=== PATIENT | male | born 1955 | race American Indian/Alaskan Native ===

== ENCOUNTER 2017-11-21 20:17 | Emergency (ER) | payer BC ==
[2017-11-21 21:00] LABS: Alanine Aminotransferase 19 units/L (7-56); Albumin 4.2 g/dL (3.9-5); BUN/Creatinine Ratio 23; Blood Urea Nitrogen 21 mg/dL (9-20); Calcium 9.6 mg/dL (8.4-10.2); Hemolysis Index 4; Lipase 28 units/L (13-60)
[2017-11-21 21:01] LABS: Basophils % (Auto) 0.4 % (0.0-1.8); Eosinophils % (Auto) 0.3 % (0.0-4.3); Hematocrit 43.9 % (35.5-45.6); Hemoglobin 14.8 gm/dl (11.8-15.2); Lymphocytes % (Auto) 16.1 % (13.4-35.0); Mean Corpuscular HGB Conc 34 % (32-34); Mean Corpuscular Hemoglobin 29 pg (28-32); Mean Corpuscular Volume 87 fl (84-94); Monocytes % (Auto) 3.8 % (0.0-7.3); Platelet Count 187 K/mm3 (140-440); Red Blood Count 5.03 M/mm3 (3.65-5.03); Red Cell Distribution Width 13.8 % (13.2-15.2)
[2017-11-21 21:02] LABS: Lymphocytes # (Auto) 1.1 K/mm3 (1.2-5.4); Monocytes # (Auto) 0.3 K/mm3 (0.0-0.8)
[2017-11-21] MEDS ORDERED: ZOFRAN IV ONE (21:24)
[2017-11-21] MEDS ORDERED: TORADOL IV ONE (21:24)
[2017-11-21] MEDS ORDERED: REGLAN IV ONE (21:24)
[2017-11-21] MEDS ORDERED: BENADRYL IV ONE (21:24)
--- NOTE | 2017-11-21 21:43 | Emergency Department Report ---
ED Headache HPI - General Chief Complaint: Abdominal Pain Stated Complaint: HEADACHE,STOMACH PAIN Time Seen by Provider: 11/21/17 21:13 Source: patient Exam Limitations: no limitations - History of Present Illness Initial Comments: 62-year-old male with neck and past medical history presents to Hospital complaining of headache, nausea, and vomiting. Patient states that he had a mild frontal headache and lightheadedness after leaving [place]. Headache progressively worsened and became throbbing and moderate to severe in intensity in the frontal bitemporal part of the head. Patient took Motrin 800mg and ate chicken and tried to lay down. 30 minutes later he started having vomiting. Mild neck pain reported. No history of trauma, syncope, chest pain, or shortness of breath. Patient denies abdominal pain. No previous history of headaches or migraines reported. No fever. Allergies/Adverse Reactions: Allergies No Known Allergies Allergy (Verified 11/21/17 20:25) Home Medications: Ambulatory Orders Butalb/Acetamin/Caff 50-325-40 [Fioricet] 1 tab PO Q6HR PRN #20 tab 11/21/17 Ibuprofen [Motrin] 800 mg PO Q8HR PRN #30 tablet 11/21/17 Ondansetron [Zofran Odt] 4 mg PO Q8HR PRN #20 tab.rapdis 11/21/17 ED Review of Systems ROS: Stated complaint: HEADACHE,STOMACH PAIN Other details as noted in HPI Comment: All other systems reviewed and negative ED Past Medical Hx - Past Medical History Previous Medical History?: No - Surgical History Past Surgical History?: Yes Additional Surgical History: right knee - Social History Smoking Status: Never Smoker Substance Use Type: None - Medications Home Medications: Home Medications Medication Instructions Recorded Confirmed Last Taken Type Butalb/Acetamin/Caff 50-325-40 1 tab PO Q6HR PRN #20 tab 11/21/17 Unknown Rx [Fioricet] Ibuprofen [Motrin] 800 mg PO Q8HR PRN #30 tablet 11/21/17 Unknown Rx Ondansetron [Zofran Odt] 4 mg PO Q8HR PRN #20 tab.rapdis 11/21/17 Unknown Rx ED Physical Exam - General Limitations: No Limitations - Other Other exam information: General: No limitations, patient is alert in no acute distress Head exam: Atraumatic, normocephalic Eyes exam: Normal appearance, pupils equal reactive to light, extraocular movements intact ENT: Moist mucous membrane, normal oropharynx Neck exam: Normal inspection, full range of motion, no meningismus nontender Respiratory exam: Clear to auscultation bilateral, no wheezes, rales, crackles Cardiovascular: Normal rate and rhythm, normal heart sounds Abdomen: Soft, nondistended, and nontender, with normal bowel sounds, no rebound, or guarding Extremity: Full range of motion normal inspection no deformity Back: Normal Inspection, full range of motion, no tenderness Neurologic: Alert, oriented x3, cranial nerves intact, no motor or sensory deficit, NIHSS 0 Psychiatric: normal affect, normal mood Skin: Warm, dry, intact ED Course Vital Signs 11/21/17 11/21/17 11/21/17 20:19 21:17 21:40 Temperature 97.4 F L 97.5 F L Pulse Rate 74 78 Respiratory 18 16 Rate Blood Pressure 117/83 Blood Pressure 127/79 [Left] O2 Sat by Pulse 97 99 97 Oximetry 11/21/17 11/21/17 11/21/17 21:41 21:46 22:00 Temperature Pulse Rate 70 78 Respiratory 27 H 27 H Rate Blood Pressure 127/79 127/79 127/79 Blood Pressure [Left] O2 Sat by Pulse 99 96 100 Oximetry 11/21/17 11/21/17 11/21/17 22:04 22:16 22:33 Temperature Pulse Rate 77 Respiratory 16 13 16 Rate Blood Pressure 128/90 Blood Pressure [Left] O2 Sat by Pulse 98 Oximetry ED Medical Decision Making - Lab Data Result diagrams: 11/21/17 20:31 11/21/17 20:31 Lab Results 11/21/17 11/21/17 11/21/17 Range/Units 20:31 20:31 Unknown WBC 6.8 (4.5-11.0) K/mm3 RBC 5.03 (3.65-5.03) M/mm3 Hgb 14.8 (11.8-15.2) gm/dl Hct 43.9 (35.5-45.6) % MCV 87 (84-94) fl MCH 29 (28-32) pg MCHC 34 (32-34) % RDW 13.8 (13.2-15.2) % Plt Count 187 (140-440) K/mm3 Lymph % (Auto) 16.1 (13.4-35.0) % [place] % (Auto) 3.8 (0.0-7.3) % Eos % (Auto) 0.3 (0.0-4.3) % Baso % (Auto) 0.4 (0.0-1.8) % Lymph # 1.1 L (1.2-5.4) K/mm3 [place] # 0.3 (0.0-0.8) K/mm3 Eos # 0.0 (0.0-0.4) K/mm3 Baso # 0.0 (0.0-0.1) K/mm3 Add Manual Diff Complete Seg Neutrophils % 79.4 H (40.0-70.0) % Seg Neutrophils # 5.4 (1.8-7.7) K/mm3 Sodium 139 (137-145) mmol/L Potassium 4.3 (3.6-5.0) mmol/L Chloride 101.9 (98-107) mmol/L Carbon Dioxide 26 (22-30) mmol/L Anion Gap 15 mmol/L BUN 21 H (9-20) mg/dL Creatinine 0.9 (0.8-1.5) mg/dL Estimated GFR > 60 ml/min BUN/Creatinine Ratio 23 % Glucose 106 H (75-100) mg/dL Calcium 9.6 (8.4-10.2) mg/dL Total Bilirubin 0.80 (0.1-1.2) mg/dL AST 19 (5-40) units/L ALT 19 (7-56) units/L Alkaline Phosphatase 63 (35-129) units/L Total Protein 7.0 (6.3-8.2) g/dL Albumin 4.2 (3.9-5) g/dL Albumin/Globulin Ratio 1.5 % Lipase 28 (13-60) units/L Urine Color Yellow (Yellow) Urine Turbidity Clear (Clear) Urine pH 8.0 H (5.0-7.0) Ur Specific [place] 1.024 (1.003-1.030) Urine Protein <15 mg/dl (Negative) mg/dL Urine Glucose (UA) Neg (Negative) mg/dL Urine Ketones Tr (Negative) mg/dL Urine Blood Neg (Negative) Urine Nitrite Neg (Negative) Urine Bilirubin Neg (Negative) Urine Urobilinogen < 2.0 (<2.0) mg/dL Ur Leukocyte Esterase Neg (Negative) Urine WBC (Auto) 0.0 (0.0-6.0) /HPF Urine RBC (Auto) 1.0 (0.0-6.0) /HPF Urine Mucus Few /HPF - Radiology Data Radiology results: report reviewed ct head IMPRESSION: No acute intracranial abnormality - Medical Decision Making headache feels better after receiving Reglan, Benadryl, Toradol, and [address] unremarkable. Labs unremarkable. Will be discharged home with symptomatic treatment and PMD f/u - Differential Diagnosis migraine, tension, ICH, tension Critical Care Time: No Critical care attestation.: If time is entered above; I have spent that time in minutes in the direct care of this critically ill patient, excluding procedure time. ED Disposition Clinical Impression: Headache, Vomiting Disposition: OP ADMIT IP TO THIS HOSP Is pt being admited?: Yes Condition: Stable Instructions: Acute Headache (ED) Additional Instructions: Take the medication as prescribed. Follow up with the doctor provided with a doctor of your choice. Return if symptoms worsen. Prescriptions: Butalb/Acetamin/Caff 50-325-40 [Fioricet] 1 tab PO Q6HR PRN #20 tab PRN Reason: Headache Ibuprofen [Motrin] 800 mg PO Q8HR PRN #30 tablet PRN Reason: Pain Ondansetron [Zofran Odt] 4 mg PO Q8HR PRN #20 tab.rapdis PRN Reason: Nausea And Vomiting Referrals: MILAGROS BLANTON MD [Staff Physician] - 3-5 Days PRIMARY CARE, [Primary Care Provider] - 3-5 Days Time of Disposition: 23:07 - Assessment Assessment Interval: Baseline - Level of Consciousness 1a. Level of Consciousness: alert - LOC Questions 1b. LOC Questions: answers correctly - LOC Command 1c. LOC Commands: performs tasks correctly - Best Gaze 2. Best Gaze: normal - Visual 3. Visual: no visual loss - Facial Palsy 4. Facial Palsy: normal symmetrical movement - Motor Arm 5b. Motor Arm Right: no drift 5a. Motor Arm Left: no drift - Motor Leg 6a. Motor Leg Left: no drift 6b. Motor Leg Right: no drift - Limb Ataxia 7. Limb Ataxia: absent - Sensory 8. Sensory: normal - Best Language 9. Best Language: no aphasia - Dysarthria 10. Dysarthria: normal - Extinction and Inattention 11. Extinction/Inattention: no abnormality - Scoring Total Score: 0 Stroke Severity: No Stroke Symptoms
[2017-11-21] MEDS ORDERED: NACL 0.9% 1000 ML 1,000 ML IV ONE (22:04)
[2017-11-21 22:07] LABS: Bilirubin,Urine NEG (Negative); Blood,Urine NEG (Negative); Color,Urine Yellow (Yellow); Mucus,Urine FEW /HPF; Protein,Urine <15 mg/dL mg/dL (Negative); Urobilinogen,Urine < 2.0 mg/dL (<2.0)
--- NOTE | 2017-11-21 22:07 | Cat Scan Report ---
FINAL REPORT PROCEDURE: CT HEAD/BRAIN WO CON TECHNIQUE: Computerized tomography of the head was performed without contrast material. HISTORY: donnelly, nausea COMPARISON: No prior studies are available for comparison. FINDINGS: Skull and scalp: Normal. Paranasal sinuses: Normal. Ventricles and subarachnoid spaces: Are prominent consistent with cerebral atrophy appropriate for patient's age.. Cerebrum: No evidence of hemorrhage, acute infarction or mass . Cerebellum and brainstem: No evidence of hemorrhage, acute infarction or mass. Vasculature: Normal. Comments: None. IMPRESSION: No acute intracranial abnormality
[2017-11-21 23:32] VITALS: BP 126/77
== END 2017-11-21 23:42 | disposition admitted as inpatient to this hospital (09) ==
LOC: ED 20:17
DX: R51 Headache (principal); R11.2 Nausea with vomiting, unspecified; M54.2 Cervicalgia; R42 Dizziness and giddiness
CPT/HCPCS: 36415; 70450; 80053; 81001; 83690; 85025; 96361; 96374; 96375; 99284; J1200; J1885; J2405; J2765; J7030